=== PATIENT | female | born 2000 | race Two or more races ===

== ENCOUNTER 2022-11-21 18:02 | Emergency (ER) | payer MEDICAID ==
[~2022-11-21] VITALS: Ht 160 cm; Wt 50.0 kg
[2022-11-21 18:18] VITALS: BP 100/42
[2022-11-21 18:44] LABS: BASOPHILS % 0.4 % (0.0-2.0); HEMATOCRIT. 32.9 % (36.0-48.0); HEMOGLOBIN. 10.9 g/dL (12.0-16.0); LYMPHOCYTES % 12.1 % (20.0-50.0); MEAN CORPUSCULAR HEMOGLOBIN 32.7 pg (28.0-32.0); MEAN CORPUSCULAR VOLUME 98.8 fL (81.0-99.0); MEAN PLATELET VOLUME 8.5 fl (7.4-10.4); MONOCYTES % 5.3 % (2.0-8.0); NEUTROPHILS % 82.2 % (40.0-76.0); PLATELET 214 x1000/uL (130-400); RED BLOOD CELL COUNT 3.33 mill/uL (4.2-5.4)
[2022-11-21 18:52] LABS: CHLORIDE 106 mEq/L (98-107)
[2022-11-21 18:56] LABS: HCG SCREEN NEGATIVE
[2022-11-21 18:59] LABS: ETHANOL BLOOD < 10 mg/dL
[2022-11-21] MEDS ORDERED: ACETAMINOPHEN 325MG TABLET PO STA (20:33)
[2022-11-21] MEDS ORDERED: ONDANSETRON HCL 4MG/2ML INJ IV STA (20:33)
[2022-11-21] MEDS ORDERED: MORPHINE SULFATE 4 MG/ML CPJ (NOT FOR IM USE) IV STA (20:33)
[2022-11-21] MEDS ORDERED: SODIUM CHLORIDE 0.9% 1,000 ML IV ONE (20:45)
[2022-11-21] MEDS ORDERED: POTASSIUM CHLORIDE 20MEQ TABLET SR PO ONE (22:00)
[2022-11-21] MEDS ORDERED: IBUP-2028 MT (22:57)
[2022-11-21 23:50] LABS: CLARITY URINE TURBID (CLEAR); COLOR URINE YELLOW (YELLOW); KETONES URINE 2+ (NEGATIVE); LEUKOCYTE ESTERASE URINE NEGATIVE (NEGATIVE); NITRITE URINE NEGATIVE (NEGATIVE); OCCULT BLOOD URINE 1+ (NEGATIVE); PH URINE >=9.0 (4.5-8.0); PROTEIN URINE 1+ (NEGATIVE); SPECIFIC GRAVITY URINE 1.021 (1.005-1.030)
[2022-11-22] MEDS ORDERED: NITR-87 MT (00:04)
[2022-11-22 00:09] LABS: *AMPHETAMINES SCREEN URINE NEGATIVE (NEGATIVE); *BARBITURATES SCREEN URINE NEGATIVE (NEGATIVE); *BENZODIAZEPINES SCREEN URINE NEGATIVE (NEGATIVE); *COCAINE SCREEN URINE NEGATIVE (NEGATIVE); METHADONE URINE SCREEN NEGATIVE (NEGATIVE); PHENCYCLIDINE URINE SCREEN NEGATIVE (NEGATIVE)
[2022-11-22 00:28] LABS: CANNABINOID URINE SCREEN PRESUMTIVE POSITIVE (NEGATIVE); OPIATES URINE SCREEN PRESUMTIVE POSITIVE (NEGATIVE)
== END 2022-11-22 00:24 | disposition home or self-care (01) ==
LOC: ER 18:02
DX: N39.0 Urinary tract infection, site not specified (principal); D64.9 Anemia, unspecified
CPT/HCPCS: 36415; 71045; 74176; 80053; 80305; 80320; 81003; 83690; 84703; 85025; 96361; 96374; 96375; 99285; J2270; J2405; J7030; Z7610; G0480